=== PATIENT | female | born 1970 | race Two or more races ===

== ENCOUNTER 2018-05-30 23:23 | Emergency (ER) | payer BC ==
[~2018-05-30] VITALS: Ht 162.6 cm; Wt 72.6 kg
[2018-05-31] MEDS ORDERED: PHENERGAN25 MG PO (04:26)
[2018-05-31] MEDS ORDERED: KETO10TA2 PO (04:26)
== END 2018-05-31 04:25 | disposition home or self-care (01) ==
LOC: ER 23:23
DX: N94.5 Secondary dysmenorrhea (principal)